=== PATIENT | male | born 1985 ===

== ENCOUNTER 2025-05-05 17:54 | Outpatient (REF) | payer BC, SELFPAY ==
[2025-05-05 19:42] LABS: Anion Gap 11.5 mmol/L (3-11); BUN 28 mg/dL (7-18); CO2 24.5 mmol/L (21.0-32.0); Calcium 9.3 mg/dL (8.5-10.1); Calculated LDL 109 mg/dL (<100); Chloride 103 mmol/L (98-107); Cholesterol 186 mg/dL (<200); Estimated GFR 112.11 (mL/min/1.73m2); Glucose 95 mg/dL (74-106); HDL Cholesterol 68 mg/dL (>or=40); Potassium 4.6 mmol/L (3.5-5.1); Sodium 139 mmol/L (136-145); Triglyceride 47 mg/dL (<150)
[2025-05-08 11:39] LABS: Apolipoprotein B, S 77 mg/dL
== END 2025-05-05 17:55 | disposition home or self-care (01) ==
LOC: NCHCN 17:54
PROVIDERS: Visit Provider Family Medicine
DX: Z13.220 Encounter for screening for lipoid disorders (principal); E66.3 Overweight
CPT/HCPCS: 80048; 80061; 82172; 83695